=== PATIENT | male | born 2005 | race Two or more races ===

== ENCOUNTER 2024-02-14 00:09 | Emergency (ER) | payer MEDICAID ==
[~2024-02-14] VITALS: Ht 165.1 cm; Wt 157.0 kg
[2024-02-14 00:29] VITALS: BP 136/62; PULSE 70; RESP 24; O2SAT 100
[2024-02-14 00:32] LABS: Basophils # (auto) 0.1 10 ^3/uL (0-0.2); Basophils % (auto) 0.5 % (0.0-2.0); Eosinophils # (auto) 0.2 10 ^3/uL (0-0.8); Eosinophils % (auto) 0.8 % (0.0-7.0); Hematocrit 41.1 % (41.0-53.0); Hemoglobin 13.8 g/dL (13.5-17.5); Lymphocytes # (auto) 3.7 10 ^3/uL (0.4-5.4); Mean Corpuscular Hemoglobin 29.5 pg (28.0-32.0); Mean Corpuscular Hgb Conc. 33.7 g/dL (32.0-36.0); Mean Corpuscular Volume 87.5 fL (80.0-100.0); Monocytes # (auto) 0.7 10 ^3/uL (0-1.3); Monocytes % (auto) 3.4 % (0.0-12.0); Neutrophils # (auto) 16.9 10 ^3/uL (1.6-8.6); Neutrophils % (auto) 78.3 % (37.0-80.0); Red Cell Distribution Width 12.9 % (11.8-14.3); White Blood Cell 21.7 10^3/uL (4.4-10.8)
[2024-02-14 00:51] LABS: Alanine Aminotransferase 33 U/L (7-40); Albumin 4.5 g/dL (3.2-4.8); Alkaline Phosphatase 71 U/L (46-116); Anion Gap 15 (5-15); Aspartate Aminotransferase 33 U/L (13-40); BUN/Creatinine Ratio 19.5 (10.0-20.0); Bilirubin, Total 0.7 mg/dL (0.2-1.0); Blood Urea Nitrogen 22 mg/dL (9-23); Calcium 9.8 mg/dL (8.7-10.4); Carbon Dioxide 23 mmol/L (20-30); Chloride 105 mmol/L (98-107); Glucose 159 mg/dL (74-106); Lipase 41 U/L (12-53); Potassium 2.7 mmol/L (3.5-5.1); Sodium 143 mmol/L (136-145)
[2024-02-14] MEDS ORDERED: FAMOTIDINE (10MG/ML) 2ML VL IV ONE (01:00)
[2024-02-14] MEDS ORDERED: POTASSIUM CHL 20MEQ/100ML 100 ML IV ONE (01:00)
[2024-02-14] MEDS ORDERED: ONDANSETRON HCL 4 MG/2 ML VIAL IV ONE (01:00)
[2024-02-14] MEDS ORDERED: SODIUM CHLORIDE 0.9% 1,000 ML IV ONE (01:00)
[2024-02-14 02:15] LABS: Urine Bacteria None Seen /hpf (None Seen)
[2024-02-14 02:34] LABS: Urine Blood Negative /uL (Negative); Urine Clarity Clear (Clear); Urine Color Yellow (Yellow); Urine Mucus FEW (None Seen); Urine Protein, UAD 1+ (Negative); Urine Specific Gravity 1.035 (1.001-1.035); Urine Urobilinogen 2 mg/dL (Negative); Urine WBC 1 /hpf (0 - 3)
== END 2024-02-14 02:19 | disposition left against medical advice (07) ==
LOC: ER 00:09
DX: R10.10 Upper abdominal pain, unspecified (principal); R11.2 Nausea with vomiting, unspecified; Z53.21 Procedure and treatment not carried out due to patient leaving prior to being seen by health care provider
CPT/HCPCS: 36415; 74176; 80053; 81001; 83690; 85025

== ENCOUNTER 2024-03-14 12:49 | Inpatient (IN) | payer MEDICAID ==
[~2024-03-14] VITALS: Ht 165.1 cm; Wt 84.3 kg
[2024-03-14] MEDS: SODIUM CHLORIDE 0.9% 1,000 ML IV ONE (13:15)
[2024-03-14 13:33] LABS: Eosinophils # (auto) 0.1 10 ^3/uL (0-0.8); Lymphocytes % (auto) 12.4 % (10.0-50.0)
[2024-03-14 13:35] LABS: Urine Bacteria FEW /hpf (None Seen); Urine Blood Negative /uL (Negative); Urine Clarity Clear (Clear); Urine Color Yellow (Yellow); Urine Hyaline Cast FEW /lpf (0 - 2); Urine Mucus FEW (None Seen); Urine Protein, UAD TRACE (Negative); Urine Specific Gravity 1.023 (1.001-1.035); Urine Urobilinogen Normal (Negative); Urine WBC 1 /hpf (0 - 3); Urine pH 6.5 (5.0-9.0)
[2024-03-14 13:35] LABS: Basophils # (auto) 0.2 10 ^3/uL (0-0.2); Basophils % (auto) 0.8 % (0.0-2.0); Eosinophils % (auto) 0.6 % (0.0-7.0); Hemoglobin 13.2 g/dL (13.5-17.5); Lymphocytes # (auto) 2.7 10 ^3/uL (0.4-5.4); Mean Corpuscular Hemoglobin 29.4 pg (28.0-32.0); Mean Corpuscular Hgb Conc. 33.7 g/dL (32.0-36.0); Mean Corpuscular Volume 87.3 fL (80.0-100.0); Monocytes # (auto) 1.3 10 ^3/uL (0-1.3); Monocytes % (auto) 6.2 % (0.0-12.0); Neutrophils # (auto) 17.1 10 ^3/uL (1.6-8.6); Nucleated Red Blood Cells % 0.2 %; Red Blood Cells 4.47 10^6/uL (4.5-5.90); Red Cell Distribution Width 13.3 % (11.8-14.3); White Blood Cell 21.3 10^3/uL (4.4-10.8)
[2024-03-14 13:50] LABS: INR 1.08 (0.9-1.15); Partial Thromboplastin Time 23.8 SEC (24.5-34.5); Prothrombin Time 11.4 sec (9.3-11.8)
[2024-03-14 13:51] LABS: Amphetamine Screen, Urine Neg (NEGATIVE); Barbiturate Scree,Urine Neg (NEGATIVE); Benzodiazephine Screen, Urine Neg (NEGATIVE); Cocaine Screen, Urine Neg (NEGATIVE); Opiate Scree,Urine Neg (NEGATIVE)
[2024-03-14 13:52] LABS: Cannabinoid Screen, Urine Pos (NEGATIVE); Phencyclidine Screen, Urine Neg (NEGATIVE)
[2024-03-14 14:01] LABS: Alanine Aminotransferase 22 U/L (7-40); Albumin 4.1 g/dL (3.2-4.8); Alkaline Phosphatase 66 U/L (46-116); Anion Gap 9 (5-15); Aspartate Aminotransferase < 8 U/L (13-40); BUN/Creatinine Ratio 19.5 (10.0-20.0); Bilirubin, Total 0.5 mg/dL (0.2-1.0); Blood Urea Nitrogen 17 mg/dL (9-23); Calcium 9.2 mg/dL (8.7-10.4); Carbon Dioxide 26 mmol/L (20-30); Chloride 100 mmol/L (98-107); Glucose 147 mg/dL (74-106); Lipase 43 U/L (12-53); Potassium 3.5 mmol/L (3.5-5.1); Sodium 135 mmol/L (136-145); Total Protein 6.8 g/dL (5.7-8.2)
[2024-03-14] MEDS: ONDANSETRON HCL 4 MG/2 ML VIAL IV ONE (15:11)
[2024-03-14] MEDS: HYDROcodone-ACET 5/325MG TAB PO ONE (15:16)
[2024-03-14] MEDS: cefTRIAXone 1GM/50ML D5W 50 ML IV ONE (15:25)
[2024-03-14 16:45] VITALS: PULSE 91; RESP 16; O2SAT 95
[2024-03-14] MEDS: PIPERACILLIN-TAZOB 3.375GM 100 ML IV ONE (18:00)
[2024-03-14 18:13] VITALS: PULSE 80; RESP 18; O2SAT 100; O2SAT 96
[2024-03-14] MEDS: IPRATROPIUM BROM 0.5 MG/2.5ML INH SOL NEB SCH (18:27)
[2024-03-14] MEDS: ALBUTEROL SULF 2.5 MG/0.5ML(0.5%) NEB SOLN NEB SCH (18:27)
[2024-03-14 19:21] VITALS: BP 116/82; PULSE 80; RESP 18; TEMP 99.1; O2SAT 96
[2024-03-14] MEDS: AZITHROMYCIN 500MG/ 250ML 250 ML IV ONE (19:25)
[2024-03-14 20:17] LABS: Rapid Influenza A Negative (Negative); Rapid Influenza B Negative (Negative)
[2024-03-14 20:18] LABS: COVID19 ANTIGEN SOFIA FIA NEGATIVE (NEGATIVE)
[2024-03-14 20:51] VITALS: PULSE 91; RESP 16; O2SAT 95
[2024-03-14] MEDS: MORPHINE SULFATE INJ 2 MG/ml SYRG IV PRN (21:36)
[2024-03-14] MEDS ORDERED: ESCI1TAB37 PO (22:04)
[2024-03-14] MEDS ORDERED: LUMA42CA PO (22:04)
[2024-03-14] MEDS ORDERED: HYDR50CA2 PO (22:04)
[2024-03-14 23:40] VITALS: PULSE 88; PULSE 91; RESP 18; O2SAT 100; O2SAT 95
[2024-03-15] VITALS (15 sets, daily range): BP systolic 106–130; BP diastolic 60–79; PULSE 96–120; RESP 16–20; TEMP 97.5–99.9; O2SAT 94–99
[2024-03-15] MEDS: PIPERACILLIN-TAZOB 3.375GM 100 ML IV SCH (00:04)
[2024-03-15 06:37] LABS: Basophils # (auto) 0 10 ^3/uL (0-0.2); Basophils % (auto) 0.1 % (0.0-2.0); Eosinophils # (auto) 0 10 ^3/uL (0-0.8); Eosinophils % (auto) 0.1 % (0.0-7.0); Lymphocytes # (auto) 1.8 10 ^3/uL (0.4-5.4); Monocytes # (auto) 2.1 10 ^3/uL (0-1.3)
[2024-03-15 06:42] LABS: Hematocrit 36.9 % (41.0-53.0); Hemoglobin 12.5 g/dL (13.5-17.5); Lymphocytes % (auto) 7.6 % (10.0-50.0); Mean Corpuscular Hemoglobin 29.7 pg (28.0-32.0); Mean Corpuscular Volume 87.5 fL (80.0-100.0); Neutrophils # (auto) 19.5 10 ^3/uL (1.6-8.6); Neutrophils % (auto) 83.2 % (37.0-80.0); Red Blood Cells 4.22 10^6/uL (4.5-5.90); White Blood Cell 23.5 10^3/uL (4.4-10.8)
[2024-03-15 07:41] LABS: Anion Gap 7 (5-15); Carbon Dioxide 25 mmol/L (20-30)
[2024-03-15 07:46] LABS: BUN/Creatinine Ratio 16.2 (10.0-20.0); Blood Urea Nitrogen 11 mg/dL (9-23); Glucose 129 mg/dL (74-106)
[2024-03-15 07:52] LABS: Sodium 135 mmol/L (136-145)
[2024-03-15 07:53] LABS: Chloride 103 mmol/L (98-107); Potassium 3.6 mmol/L (3.5-5.1)
[2024-03-15] MEDS: ONDANSETRON HCL 4 MG/2 ML VIAL IV PRN (08:34)
[2024-03-15] MEDS: AZITHROMYCIN 500MG/ 250ML 250 ML IV SCH (09:55)
[2024-03-15] MEDS: DICYCLOMINE HCL 10 MG CAP PO SCH (12:22)
[2024-03-15] MEDS: PANTOPRAZOLE 40 MG TAB PO ONE (17:23)
[2024-03-16] VITALS (13 sets, daily range): BP systolic 108–119; BP diastolic 60–70; PULSE 94–120; RESP 16–20; TEMP 97.3–98.9; O2SAT 92–99
[2024-03-16 05:37] LABS: Basophils # (auto) 0 10 ^3/uL (0-0.2); Eosinophils # (auto) 0.1 10 ^3/uL (0-0.8); Lymphocytes # (auto) 2.2 10 ^3/uL (0.4-5.4); Mean Corpuscular Volume 86.4 fL (80.0-100.0); Neutrophils # (auto) 19.7 10 ^3/uL (1.6-8.6)
[2024-03-16 05:41] LABS: Basophils % (auto) 0.2 % (0.0-2.0); Eosinophils % (auto) 0.3 % (0.0-7.0); Hematocrit 36.6 % (41.0-53.0); Hemoglobin 12.5 g/dL (13.5-17.5); Lymphocytes % (auto) 8.7 % (10.0-50.0); Mean Corpuscular Hemoglobin 29.4 pg (28.0-32.0); Monocytes # (auto) 2.9 10 ^3/uL (0-1.3); Monocytes % (auto) 11.6 % (0.0-12.0); Neutrophils % (auto) 79.2 % (37.0-80.0); Nucleated Red Blood Cells % 0.1 %; Red Blood Cells 4.24 10^6/uL (4.5-5.90); Red Cell Distribution Width 13.3 % (11.8-14.3); White Blood Cell 24.8 10^3/uL (4.4-10.8)
[2024-03-16] MEDS: PANTOPRAZOLE 40 MG TAB PO SCH (06:02)
[2024-03-16] MEDS: PIPERACILLIN-TAZOB 3.375GM 100 ML IV SCH ×2 (08:59→16:23)
[2024-03-16] MEDS: CITALOPRAM HYDROBR 20 MG TAB PO SCH (08:59)
[2024-03-16] MEDS: Lumateperone Tosylate (Caplyta) 42 MG CAPSULE PO SCH (10:00)
[2024-03-16] MEDS: HYDROcodone-ACET 5/325MG TAB PO PRN (13:28)
[2024-03-17] VITALS (13 sets, daily range): BP systolic 113–130; BP diastolic 57–70; PULSE 86–123; RESP 16–70; TEMP 98.4–99; O2SAT 92–100
[2024-03-17] MEDS: FUROSEMIDE 40 MG/4 ML VIAL IV ONE (00:50)
[2024-03-18] VITALS (14 sets, daily range): BP systolic 107–122; BP diastolic 58–88; PULSE 85–112; RESP 16–24; TEMP 97.9–101; O2SAT 91–100
[2024-03-18] MEDS: DICYCLOMINE HCL 10 MG CAP PO SCH (01:24)
[2024-03-18] MEDS: ACETAMINOPHEN 500 MG TAB PO PRN (04:39)
[2024-03-18] MEDS: IOHEXOL 350 MG/ML 100ML IJ ONE (12:11)
[2024-03-18] MEDS: LIDOCAINE 2%HCL (LOCAL ANESTH.) INJ 10ml MDV ONE (12:12)
[2024-03-18] MEDS: fentaNYL CITRATE 100 MCG/2 ML VL ONE (15:39)
[2024-03-18] MEDS: MIDAZOLAM HCL 2MG/2ML 2ml VIAL (1mg/ml) ONE (15:42)
[2024-03-18 21:37] LABS: Body Fluid Polymorphonuclear 70 % (0-25); Body Fluid Red Blood Cells 1085 CUMM (0-2000); Body Fluid White Blood Cells 745 CUMM (0-200)
[2024-03-18] MEDS: hydrOXYzine 25 MG TAB or CAP PO PRN (21:42)
[2024-03-18] MEDS: Lumateperone Tosylate (Caplyta) 42 MG CAPSULE PO SCH (21:58)
[2024-03-19] VITALS (11 sets, daily range): BP systolic 110–120; BP diastolic 58–74; PULSE 17–108; RESP 16–20; TEMP 97.8–100.1; O2SAT 91–100
[2024-03-19 09:07] LABS: Basophils # (auto) 0 10 ^3/uL (0-0.2); Eosinophils # (auto) 0.1 10 ^3/uL (0-0.8); Eosinophils % (auto) 0.3 % (0.0-7.0)
[2024-03-19 09:10] LABS: Basophils % (auto) 0.2 % (0.0-2.0); Hemoglobin 12.9 g/dL (13.5-17.5); Mean Corpuscular Hemoglobin 29.6 pg (28.0-32.0); Mean Corpuscular Volume 86.9 fL (80.0-100.0); Monocytes # (auto) 1.9 10 ^3/uL (0-1.3); Monocytes % (auto) 9.3 % (0.0-12.0); Neutrophils # (auto) 16.3 10 ^3/uL (1.6-8.6); Neutrophils % (auto) 80.2 % (37.0-80.0); Red Blood Cells 4.38 10^6/uL (4.5-5.90); Red Cell Distribution Width 13.7 % (11.8-14.3); White Blood Cell 20.4 10^3/uL (4.4-10.8)
[2024-03-19 09:29] LABS: Anion Gap 6 (5-15); Calcium 10.3 mg/dL (8.7-10.4); Carbon Dioxide 33 mmol/L (20-30); Chloride 99 mmol/L (98-107); Potassium 3.8 mmol/L (3.5-5.1); Sodium 138 mmol/L (136-145)
[2024-03-19 09:35] LABS: BUN/Creatinine Ratio 10.7 (10.0-20.0); Blood Urea Nitrogen 11 mg/dL (9-23); Glucose 113 mg/dL (74-106)
[2024-03-19 12:06] LABS: Protein, Body Fluid 5.1 g/dL (.)
[2024-03-19] MEDS: MEROPENEM 1GM IVPB 50 ML IV SCH (14:09)
[2024-03-19] MEDS: DICYCLOMINE HCL 10 MG CAP PO SCH (14:09)
[2024-03-19] MEDS: LINEZOLID 600MG TABLET PO SCH (21:35)
[2024-03-19] MEDS: CITALOPRAM HYDROBR 20 MG TAB PO SCH (21:38)
[2024-03-20] VITALS (15 sets, daily range): BP systolic 91–127; BP diastolic 40–76; PULSE 69–100; RESP 16–20; TEMP 98–98.3; O2SAT 94–100
[2024-03-20 08:42] LABS: Eosinophils # (auto) 0.1 10 ^3/uL (0-0.8)
[2024-03-20 08:44] LABS: Basophils # (auto) 0 10 ^3/uL (0-0.2); Basophils % (auto) 0.2 % (0.0-2.0); Eosinophils % (auto) 0.5 % (0.0-7.0); Hematocrit 33.6 % (41.0-53.0); Hemoglobin 11.4 g/dL (13.5-17.5); Lymphocytes # (auto) 2.4 10 ^3/uL (0.4-5.4); Lymphocytes % (auto) 10.9 % (10.0-50.0); Mean Corpuscular Hemoglobin 29.5 pg (28.0-32.0); Mean Corpuscular Volume 86.7 fL (80.0-100.0); Monocytes % (auto) 9.1 % (0.0-12.0); Neutrophils # (auto) 17.1 10 ^3/uL (1.6-8.6); Neutrophils % (auto) 79.3 % (37.0-80.0); Red Blood Cells 3.88 10^6/uL (4.5-5.90); White Blood Cell 21.5 10^3/uL (4.4-10.8)
[2024-03-20 09:00] LABS: Chloride 101 mmol/L (98-107); Potassium 4.1 mmol/L (3.5-5.1); Sodium 138 mmol/L (136-145)
[2024-03-20 09:01] LABS: Anion Gap 6 (5-15); Carbon Dioxide 31 mmol/L (20-30)
[2024-03-20 09:02] LABS: Calcium 9.1 mg/dL (8.7-10.4)
[2024-03-20 09:06] LABS: BUN/Creatinine Ratio 13.9 (10.0-20.0); Blood Urea Nitrogen 11 mg/dL (9-23); Glucose 106 mg/dL (74-106)
[2024-03-20] MEDS: DICYCLOMINE HCL 10 MG CAP ONE ×2 (21:31)
[2024-03-21] VITALS (13 sets, daily range): BP systolic 104–127; BP diastolic 50–69; PULSE 77–106; RESP 16–20; TEMP 98.2–98.9; O2SAT 95–100
[2024-03-21 06:13] LABS: Basophils # (auto) 0 10 ^3/uL (0-0.2); Basophils % (auto) 0.3 % (0.0-2.0); Eosinophils # (auto) 0.2 10 ^3/uL (0-0.8); Eosinophils % (auto) 1.1 % (0.0-7.0); Hematocrit 33.4 % (41.0-53.0); Hemoglobin 11.2 g/dL (13.5-17.5); Lymphocytes # (auto) 3.2 10 ^3/uL (0.4-5.4); Lymphocytes % (auto) 17.3 % (10.0-50.0); Mean Corpuscular Hemoglobin 29.3 pg (28.0-32.0); Mean Corpuscular Hgb Conc. 33.5 g/dL (32.0-36.0); Mean Corpuscular Volume 87.7 fL (80.0-100.0); Monocytes # (auto) 1.6 10 ^3/uL (0-1.3); Monocytes % (auto) 8.8 % (0.0-12.0); Neutrophils # (auto) 13.2 10 ^3/uL (1.6-8.6); Neutrophils % (auto) 72.5 % (37.0-80.0); Red Blood Cells 3.81 10^6/uL (4.5-5.90); Red Cell Distribution Width 13.9 % (11.8-14.3); White Blood Cell 18.2 10^3/uL (4.4-10.8)
[2024-03-21 06:24] LABS: Anion Gap 5 (5-15); Carbon Dioxide 31 mmol/L (20-30); Chloride 103 mmol/L (98-107); Potassium 4.3 mmol/L (3.5-5.1); Sodium 139 mmol/L (136-145)
[2024-03-21 06:25] LABS: Calcium 9.5 mg/dL (8.7-10.4)
[2024-03-21 06:30] LABS: BUN/Creatinine Ratio 13.3 (10.0-20.0); Blood Urea Nitrogen 11 mg/dL (9-23); Glucose 88 mg/dL (74-106)
[2024-03-22] VITALS (13 sets, daily range): BP systolic 94–121; BP diastolic 46–69; PULSE 77–101; RESP 16–18; TEMP 97.8–99.3; O2SAT 92–100
[2024-03-22 05:12] LABS: Basophils # (auto) 0.1 10 ^3/uL (0-0.2); Basophils % (auto) 0.5 % (0.0-2.0); Eosinophils # (auto) 0.2 10 ^3/uL (0-0.8); Eosinophils % (auto) 0.9 % (0.0-7.0); Hematocrit 32.2 % (41.0-53.0); Hemoglobin 10.9 g/dL (13.5-17.5); Lymphocytes # (auto) 2.8 10 ^3/uL (0.4-5.4); Lymphocytes % (auto) 14.8 % (10.0-50.0); Mean Corpuscular Hemoglobin 29.3 pg (28.0-32.0); Mean Corpuscular Hgb Conc. 33.7 g/dL (32.0-36.0); Mean Corpuscular Volume 86.9 fL (80.0-100.0); Monocytes # (auto) 1.6 10 ^3/uL (0-1.3); Monocytes % (auto) 8.4 % (0.0-12.0); Neutrophils # (auto) 14.2 10 ^3/uL (1.6-8.6); Neutrophils % (auto) 75.4 % (37.0-80.0); White Blood Cell 18.8 10^3/uL (4.4-10.8)
[2024-03-22 05:25] LABS: Chloride 102 mmol/L (98-107); Potassium 4.6 mmol/L (3.5-5.1); Sodium 137 mmol/L (136-145)
[2024-03-22 05:26] LABS: Anion Gap 5 (5-15); Calcium 9.7 mg/dL (8.7-10.4); Carbon Dioxide 30 mmol/L (20-30)
[2024-03-22 05:31] LABS: BUN/Creatinine Ratio 14.1 (10.0-20.0); Blood Urea Nitrogen 11 mg/dL (9-23); Glucose 99 mg/dL (74-106)
[2024-03-22] MEDS ORDERED: CATHFLO ACTIVASE (ALTEPLASE) 2 MG VIAL IV ONE (09:00)
[2024-03-22] MEDS: CALCITRIOL 0.25 MCG CAP PO SCH (09:33)
[2024-03-22] MEDS: OXYCODONE W/ ACETAMINOPHEN 5/325MG TABLET PO PRN (17:26)
[2024-03-23] VITALS (13 sets, daily range): BP systolic 97–139; BP diastolic 56–80; PULSE 72–110; RESP 16–20; TEMP 97.9–98.8; O2SAT 93–98
[2024-03-23 10:03] LABS: Basophils # (auto) 0.1 10 ^3/uL (0-0.2); Eosinophils # (auto) 0.1 10 ^3/uL (0-0.8); Monocytes # (auto) 0.8 10 ^3/uL (0-1.3)
[2024-03-23 10:05] LABS: Basophils % (auto) 0.4 % (0.0-2.0); Eosinophils % (auto) 0.5 % (0.0-7.0); Hematocrit 36.2 % (41.0-53.0); Hemoglobin 12.3 g/dL (13.5-17.5); Lymphocytes # (auto) 2.4 10 ^3/uL (0.4-5.4); Lymphocytes % (auto) 14.8 % (10.0-50.0); Mean Corpuscular Hemoglobin 29.8 pg (28.0-32.0); Mean Corpuscular Hgb Conc. 33.9 g/dL (32.0-36.0); Mean Corpuscular Volume 87.8 fL (80.0-100.0); Neutrophils % (auto) 79.3 % (37.0-80.0); Red Blood Cells 4.12 10^6/uL (4.5-5.90); Red Cell Distribution Width 13.9 % (11.8-14.3); White Blood Cell 16.3 10^3/uL (4.4-10.8)
[2024-03-23 10:06] LABS: Anion Gap 7 (5-15); Carbon Dioxide 29 mmol/L (20-30); Chloride 102 mmol/L (98-107); Potassium 4.3 mmol/L (3.5-5.1); Sodium 138 mmol/L (136-145)
[2024-03-23 10:07] LABS: Calcium 9.8 mg/dL (8.7-10.4)
[2024-03-23 10:12] LABS: BUN/Creatinine Ratio 16.5 (10.0-20.0); Blood Urea Nitrogen 13 mg/dL (9-23); Glucose 117 mg/dL (74-106)
[2024-03-23] MEDS ORDERED: CATHFLO ACTIVASE (ALTEPLASE) 2 MG VIAL IV ONE (11:30)
[2024-03-24] VITALS (13 sets, daily range): BP systolic 101–123; BP diastolic 53–80; PULSE 75–112; RESP 14–20; TEMP 97.8–98.5; O2SAT 94–100
[2024-03-24 10:41] LABS: Basophils # (auto) 0.1 10 ^3/uL (0-0.2); Basophils % (auto) 0.6 % (0.0-2.0); Hemoglobin 11.6 g/dL (13.5-17.5); Monocytes # (auto) 0.8 10 ^3/uL (0-1.3); Neutrophils # (auto) 9.3 10 ^3/uL (1.6-8.6)
[2024-03-24 10:44] LABS: Eosinophils # (auto) 0.1 10 ^3/uL (0-0.8); Eosinophils % (auto) 1.1 % (0.0-7.0); Hematocrit 35.4 % (41.0-53.0); Lymphocytes # (auto) 2.5 10 ^3/uL (0.4-5.4); Lymphocytes % (auto) 19.5 % (10.0-50.0); Mean Corpuscular Hemoglobin 28.6 pg (28.0-32.0); Mean Corpuscular Hgb Conc. 32.7 g/dL (32.0-36.0); Mean Corpuscular Volume 87.5 fL (80.0-100.0); Monocytes % (auto) 6.6 % (0.0-12.0); Neutrophils % (auto) 72.2 % (37.0-80.0); Red Blood Cells 4.05 10^6/uL (4.5-5.90); Red Cell Distribution Width 13.7 % (11.8-14.3); White Blood Cell 12.8 10^3/uL (4.4-10.8)
[2024-03-25] VITALS (11 sets, daily range): BP systolic 99–127; BP diastolic 46–74; PULSE 77–97; RESP 16–18; TEMP 97.6–98.6; O2SAT 95–100
[2024-03-25] MEDS: levoFLOXacin 500 MG TAB PO SCH (13:49)
[2024-03-25] MEDS ORDERED: LEVO500T91 PO (15:57)
[2024-03-25] MEDS ORDERED: LINE1TAB5 PO (15:58)
[2024-03-26] VITALS (9 sets, daily range): BP systolic 111–123; BP diastolic 64–70; PULSE 82–99; RESP 16–18; TEMP 36.7; O2SAT 96–100
[2024-03-26 06:05] LABS: Basophils # (auto) 0.1 10 ^3/uL (0-0.2); Eosinophils # (auto) 0.3 10 ^3/uL (0-0.8)
[2024-03-26 06:07] LABS: Eosinophils % (auto) 2.9 % (0.0-7.0); Hematocrit 33.9 % (41.0-53.0); Hemoglobin 11.5 g/dL (13.5-17.5); Lymphocytes # (auto) 3.2 10 ^3/uL (0.4-5.4); Lymphocytes % (auto) 31.3 % (10.0-50.0); Mean Corpuscular Hemoglobin 29.6 pg (28.0-32.0); Mean Corpuscular Hgb Conc. 33.9 g/dL (32.0-36.0); Mean Corpuscular Volume 87.5 fL (80.0-100.0); Monocytes % (auto) 9.6 % (0.0-12.0); Neutrophils # (auto) 5.7 10 ^3/uL (1.6-8.6); Neutrophils % (auto) 55.2 % (37.0-80.0); Nucleated Red Blood Cells % 0.1 %; Red Blood Cells 3.87 10^6/uL (4.5-5.90); Red Cell Distribution Width 13.8 % (11.8-14.3); White Blood Cell 10.3 10^3/uL (4.4-10.8)
[2024-03-26 06:11] LABS: Anion Gap 6 (5-15); Carbon Dioxide 30 mmol/L (20-30); Chloride 105 mmol/L (98-107); Potassium 4.3 mmol/L (3.5-5.1); Sodium 141 mmol/L (136-145)
[2024-03-26 06:13] LABS: Calcium 9.3 mg/dL (8.7-10.4)
[2024-03-26 06:18] LABS: BUN/Creatinine Ratio 16.7 (10.0-20.0); Blood Urea Nitrogen 16 mg/dL (9-23); Glucose 99 mg/dL (74-106)
[2024-03-26] MEDS ORDERED: levoFLOXacin 500 MG TAB PO SCH (10:00)
== END 2024-03-26 12:30 | disposition home or self-care (01) | DRG 720 ==
LOC: ER 12:49 → OVERFLOW 17:10 → EAST 17:10
PROVIDERS: ADMIT Nurse Practitioner Acute Care; ATTEND Nurse Practitioner Acute Care
PROC: 0W9B30Z Drainage of Left Pleural Cavity with Drainage Device, Percutaneous Approach (ICD-10-PCS; principal; 2024-03-18)
DX: A41.9 Sepsis, unspecified organism (principal); J15.69 Pneumonia due to other Gram-negative bacteria; J91.8 Pleural effusion in other conditions classified elsewhere; J15.9 Unspecified bacterial pneumonia; Z20.822 Contact with and (suspected) exposure to COVID-19; F12.10 Cannabis abuse, uncomplicated; G89.29 Other chronic pain; E66.9 Obesity, unspecified; E87.6 Hypokalemia; F20.9 Schizophrenia, unspecified; Z68.30 Body mass index [BMI] 30.0-30.9, adult; Z79.899 Other long term (current) drug therapy
CPT/HCPCS: 10005; 36415; 71045; 71046; 71250; 71275; 74176; 76604; 76705; 77012; 80048; 80053; 80307; 81001; 82270; 83605; 83690; 83970; 83986; 84443; 85025; 85048; 85379; 85610; 85730; 86635; 87040; 87045; 87070; 87177; 87205; 87426; 87427; 87804; 89051; 94003; 94640; 96360; C1729; G0378; J2001; J2185; J2250; J2405; J2543